=== PATIENT | female | born 1970 | race Two or more races ===

== ENCOUNTER 2020-06-25 19:38 | Emergency (ER) | payer SELFPAY ==
[2020-06-25 19:45] VITALS: BP 144/76; PULSE 94; TEMP 97; BMI 28.4
[2020-06-25] MEDS ORDERED: IBUPROFEN 600 MG TABLET (FP) PO ONE ×2 (20:05→20:25)
== END 2020-06-25 21:21 | disposition home or self-care (01) ==
LOC: JERFT 19:38
DX: S52.125A Nondisplaced fracture of head of left radius, initial encounter for closed fracture (principal); W19.XXXA Unspecified fall, initial encounter
CPT/HCPCS: 73070-TC-LT-FY; 99283-25